=== PATIENT | female | born 1955 | race Caucasian/White ===

== ENCOUNTER 2016-12-22 05:20 | Emergency (ER) | payer BC ==
[2016-12-22 05:28] VITALS: BP 177/82; PULSE 91; RESP 16; TEMP 98.7
--- NOTE | 2016-12-22 06:07 | XR ---
EXAM: XR Right Wrist Complete, 3 or More Views CLINICAL HISTORY: Reason: Pain TECHNIQUE: Frontal, lateral and oblique views of the right wrist. COMPARISON: No relevant prior studies available. FINDINGS: Widening of the scapholunate distance. No evidence of acute fracture. A 2 mm ossicle is seen at the tip of the ulnar styloid process, likely from old trauma. Diffuse soft tissue swelling noted about the wrist. IMPRESSION: Widening of the scapholunate distance indicative of scapholunate ligamentous injury. No acute fracture is seen.
--- NOTE | 2016-12-22 06:09 | XR ---
EXAM: XR Right Hand Complete, 3 or More Views CLINICAL HISTORY: Reason: Pain TECHNIQUE: Frontal, lateral and oblique views of the right hand. COMPARISON: No relevant prior studies available. FINDINGS: Widening of the scapholunate distance noted. No evidence of acute fracture. Diffuse soft tissue swelling about the wrist. IMPRESSION: Widening of the scapholunate distance indicative of scapholunate ligamentous injury. No evidence of acute fracture.
--- NOTE | 2016-12-22 06:41 | ED ---
General Adult HPI - General Chief complaint: Extremity Injury, Upper Stated complaint: Hand Injury Time Seen by Provider: 12/22/16 05:22 Source: patient, RN notes reviewed, old records reviewed Mode of arrival: ambulatory Limitations: no limitations - History of Present Illness Initial comments: This is a 41-year-old female in the ER for reevaluation of right wrist pain, decreased range of motion of right wrist and right wrist and right hand swelling. Patient denies specific trauma does do repetitive movement include taking her and doing her garden and picking weeds recently. Patient denies following denies injuring herself. Pain and symptoms for about 6 days swallowing for about 2 days and decreased range of motion since today. Patient states she's taken some Motrin with no significant alleviation of symptoms. She did try ice and rest without help. - Related Data Allergies Allergy/AdvReac Type Severity Reaction Status Date / Time No Known Allergies Allergy Verified 12/22/16 05:28 Review of Systems ROS Statement: Those systems with pertinent positive or pertinent negative responses have been documented in the HPI. ROS Other: All systems not noted in ROS Statement are negative. 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 hiatal hernia. Past Psychological History: No Psychological Hx Reported Smoking Status: Never smoker Past Alcohol Use History: None Reported Past Drug Use History: None Reported General Exam - General Exam Comments Initial Comments: Significant swelling and tenderness right wrist Limitations: no limitations General appearance: alert, in no apparent distress Head exam: Present: atraumatic, normocephalic, normal inspection Eye exam: Present: normal appearance, PERRL, EOMI. Absent: scleral icterus, conjunctival injection, periorbital swelling ENT exam: Present: normal exam, mucous membranes moist Neck exam: Present: normal inspection. Absent: tenderness, meningismus, lymphadenopathy Respiratory exam: Present: normal lung sounds bilaterally. Absent: respiratory distress, wheezes, rales, rhonchi, stridor Cardiovascular Exam: Present: regular rate, normal rhythm, normal heart sounds. Absent: systolic murmur, diastolic murmur, rubs, gallop, clicks GI/Abdominal exam: Present: soft, normal bowel sounds. Absent: distended, tenderness, guarding, rebound, rigid Extremities exam: Present: normal inspection, full ROM, normal capillary refill. Absent: tenderness, pedal edema, joint swelling, calf tenderness Back exam: Present: normal inspection Neurological exam: Present: alert, oriented X3, CN II-XII intact Psychiatric exam: Present: normal affect, normal mood Skin exam: Present: warm, dry, intact, normal color. Absent: rash Course Vital Signs 12/22/16 05:23 Temperature 98.7 F Pulse Rate 91 Respiratory 16 Rate Blood Pressure 177/82 O2 Sat by Pulse 97 Oximetry Procedures - Orthopedic Splinting/Casting Injury #1 Side: right Upper Extremity Injury Location: wrist, hand Upper Extremity Immobilizer: posterior splint, ulnar gutter Medical Decision Making - Medical Decision Making 61 female date ER for evaluation of right wrist injury, right scapholunate ligament tear, patient given and placed in splint, follow-up with orthopedics - Radiology Data Radiology results: report reviewed (Right x-ray right wrist and right hand show positive scapholunate dissociation), image reviewed Disposition Clinical Impression: Right scapholunate ligament tear Disposition: HOME SELF-CARE Condition: Good Instructions: Hand Sprain (ED) Referrals: Catrachito Pitts MD [Primary Care Provider] - 1-2 days
== END 2016-12-22 06:59 | disposition home or self-care (01) ==
LOC: EC 05:20
DX: S63.8X1A Sprain of other part of right wrist and hand, initial encounter (principal); Y93.89 Activity, other specified; Y92.89 Other specified places as the place of occurrence of the external cause
CPT/HCPCS: 29125; 99284